=== PATIENT | female | born 1995 | race African-American/Black ===

== ENCOUNTER 2017-09-08 16:40 | Emergency (ER) | payer SELFPAY ==
[~2017-09-08] VITALS: Ht 162.6 cm; Wt 100.0 kg
[2017-09-08] MEDS ORDERED: SRONYX 0.02 MG-1 TAB (17:18)
[2017-09-08] MEDS ORDERED: CYMBALTA 60MG60 MG PO (17:18)
[2017-09-08] MEDS ORDERED: INDERAL 20MG20 MG PO (17:19)
[2017-09-08 17:20] VITALS: BP 138/84; TEMP 98.9
[2017-09-08 18:45] VITALS: PULSE 84
== END 2017-09-08 18:46 | disposition home or self-care (01) ==
LOC: COL.ER 16:40
DX: K29.20 Alcoholic gastritis without bleeding (principal)
CPT/HCPCS: C9113; J1170; J2550; J7030

== ENCOUNTER 2018-06-23 04:14 | Emergency (ER) | payer BC ==
[~2018-06-23] VITALS: Ht 165.1 cm; Wt 100.0 kg
[~2018-06-23 04:14] MED LIST: CYMBALTA 60MG60 MG PO; INDERAL 20MG20 MG PO; SRONYX 0.02 MG-1 TAB
[2018-06-23 04:20] VITALS: TEMP 98.6
[2018-06-23 04:59] LABS: BASO % 0.3 % (0.0-2.0); EOS # 0.1 (0.0-0.7); EOS % 0.9 % (0-4.0); GRAN # 7.1 (1.4-6.5); GRAN % 72.6 % (42.2-75.2); HEMATOCRIT 38.7 % (35.0-45.0); HEMOGLOBIN 12.9 g/dl (12.0-15.0); LYMPH # 1.9 (1.2-3.4); LYMPH % 19.3 % (20.0-51.0); MEAN CELL VOLUME 90 fl (80.0-95.0); MEAN CORPUSCULAR HEMOGLOBIN 30 pg (26.0-32.0); MEAN CORPUSCULAR HGB CONC 33 g/dl (33.0-37.0); MEAN PLATELET VOLUME 10.3 fl (7.4-10.4); MONO # 0.7 (0.1-0.6); MONO % 6.7 % (1.7-9.3); PLATELET COUNT 232 K/mm3 (130-400); RED BLOOD COUNT 4.31 M/mm3 (4.10-5.30); REDCELL DISTRIBUTION WIDTH-CV 13.4 % (11.5-14.5)
[2018-06-23] MEDS ORDERED: LEXAPRO20 MG PO (05:06)
[2018-06-23 05:10] LABS: ACETAMINOPHEN < 10 ug/mL (10-30); ALANINE AMINOTRANSFERASE 23 U/L (9-52); ALBUMIN 3.9 gm/dL (3.5-5.0); ALCOHOL(ethanol),MEDICAL < 10 mg/dL; ALKALINE PHOSPHATASE 67 U/L (50-136); ANION GAP 7 mmol/L (7-16); AST,SGOT 30 U/L (15-37); BILIRUBIN,TOTAL 0.3 mg/dL (0.0-1.0); BLOOD UREA NITROGEN 12 mg/dL (7-17); CALCIUM 8.9 mg/dL (8.4-10.2); CARBON DIOXIDE 24 mmol/L (22-30); CHLORIDE 108 mmol/L (98-107); CREATININE, serum 0.72 mg/dL (0.52-1.25); GLUCOSE 143 mg/dL (74-106); POTASSIUM 3.2 mmol/L (3.4-5.0); SALICYLATE < 1.0 mg/dL; SODIUM 139 mmol/L (137-145); TOTAL PROTEIN 7.5 gm/dL (6.4-8.2)
[2018-06-23 05:21] LABS: COLLECTION METHOD CLEAN CATCH
[2018-06-23 05:34] LABS: TRICYCLIC ANTIDEPRESS URINE NEGATIVE
[2018-06-23 05:37] LABS: MUCOUS Present /lpf; PH 6 (5-8); URINE APPEARANCE Cloudy; URINE BACTERIA None Seen /hpf; URINE BILIRUBIN Negative (NEGATIVE); URINE BLOOD 3+ (NEGATIVE); URINE COLOR Red; URINE GLUCOSE Negative (NEGATIVE); URINE KETONE Negative (NEGATIVE); URINE LEUKOCYTE ESTERASE Trace (NEGATIVE); URINE NITRATE Negative (NEGATIVE); URINE PROTEIN(semi-quant) 2+ (NEGATIVE); URINE RBC >50 /hpf; URINE UROBILINOGEN Negative (NEGATIVE)
[2018-06-23 08:21] VITALS: BP 129/77; PULSE 72
== END 2018-06-23 08:25 | disposition home or self-care (01) ==
LOC: COL.ER 04:14
PROVIDERS: Emergency Medicine
DX: R45.851 Suicidal ideations (principal); E87.6 Hypokalemia; F41.9 Anxiety disorder, unspecified; G20 Parkinson's disease; F17.210 Nicotine dependence, cigarettes, uncomplicated; F12.10 Cannabis abuse, uncomplicated